=== PATIENT | male | born 1965 | race Caucasian/White ===

== ENCOUNTER 2017-07-30 17:51 | Observation (INO) ==
[2017-07-30] MEDS ORDERED: levoFLOXacin 250 MG TABLET PO ONE (18:10)
[2017-07-30] MEDS ORDERED: Acetaminophen 325 MG TABLET PO ONE (18:10)
[2017-07-30] MEDS ORDERED: 0.9 % Sodium Chloride 1,000 ML IVC ONE (18:10)
[2017-07-30] MEDS ORDERED: Ibuprofen 600 MG TABLET PO ONE (18:10)
[2017-07-30] MEDS ORDERED: methylPREDNISolone 125 MG/2 ML VIAL IVP ONE (18:13)
[2017-07-30] MEDS ORDERED: Ipratropium/Albuterol Neb 3 ML IH ONE ×3 (18:13→18:59)
--- NOTE | 2017-07-30 18:17 | Emergency Department Note ---
Disposition Clinical Impression: Acute bronchitis Qualifiers: Bronchitis organism: unspecified organism Qualified Code(s): J20.9 - Acute bronchitis, unspecified Disposition: Admitted As Inpatient Condition: Good Referrals: NONE,PCP [Primary Care Provider] - Forms: ED Satisfaction Letter Time of Disposition: 19:28 Fever HPI - General Chief Complaint: ED General Medical Stated Complaint: I am sick Time Seen by Provider: 07/30/17 18:04 Source: patient Mode of arrival: private vehicle Limitations: no limitations Nursing Notes Reviewed: Yes Vital Signs Reviewed: Yes - History of Present Illness HPI Narrative: 51-year-old male. presents today with fever and headache, productive cough, nausea vomiting, and not feeling well for 3 days. states coughing up white stuff. no chest pain. hasn't taken anything for it.States occasional dizziness as well. no runny nose. +smoke +etoh -street drugs pmh: none meds: none ALL: excedrin "Makes my heart race" - Related Data Home Medications Medication Instructions Recorded Confirmed No Known Home Drugs 07/30/17 07/30/17 Allergies Allergy/AdvReac Type Severity Reaction Status Date / Time acetaminophen AdvReac Palpitation Verified 07/30/17 17:51 [From Excedrin Migraine] s aspirin AdvReac Palpitation Verified 07/30/17 17:51 [From Excedrin Migraine] s caffeine AdvReac Palpitation Verified 07/30/17 17:51 [From Excedrin Migraine] s All systems ED: reviewed and negative except as stated. Constitutional: Reports: fever, chills, weakness Cardiovascular: Denies: chest pain Respiratory: Reports: cough, wheezes, sputum production (clear). Denies: dyspnea, hemoptysis Gastrointestinal: Reports: abdominal pain, nausea, vomiting. Denies: diarrhea Fever PMH - Past Medical History Medical history: Reports: COPD, other Surgical history: Reports: orthopedic, other (Right knee surgery, left knee arthroscopy, shoulder surgery), other (Exploratory laparotomy) Psychiatric history: Reports: no psych history - Social History Smoking Status: Current every day smoker Alcohol use: Reports: none Drug use: Reports: none Physical Exam - General Limitations: no limitations General appearance: alert, in no apparent distress - Head Head exam: atraumatic, normocephalic - Eye Eye exam: Present: normal appearance, PERRL, EOMI - ENT ENT exam: normal exam, normal oropharynx - Neck Neck exam: Present: normal inspection, full ROM - Chest Chest inspection: Present: normal inspection, symmetric chest wall rise - Respiratory Respiratory exam: Present: wheezes. Absent: respiratory distress - Cardiovascular Cardiovascular exam: Present: regular rate, normal rhythm, tachycardia - Abdominal Exam Abdominal exam: Present: soft, Non-Tender, normal bowel sounds. Absent: tenderness - Extremities Exam Extremities exam: Present: normal inspection, full ROM. Absent: tenderness, pedal edema - Back Exam Back exam: Present: normal inspection, full ROM. Absent: tenderness - Neurological Exam Neurological exam: Present: alert, oriented X3, CN II-XII intact - Psychiatric Psychiatric exam: Present: normal affect, normal mood - Skin Skin exam: Present: warm, dry, intact, normal color Course Course Narrative: [address] Veloz who accepted the patient for acute bronchitis. Vital Signs Temperature 101.3 F H 07/30/17 17:52 Pulse Rate 106 07/30/17 17:52 Respiratory Rate 18 07/30/17 17:52 Blood Pressure 125/77 07/30/17 17:52 O2 Sat by Pulse Oximetry 91 07/30/17 17:52 Temperature 101.3 F H 07/30/17 17:52 Pulse Rate 103 07/30/17 18:41 Respiratory Rate 16 07/30/17 19:07 Blood Pressure 110/56 07/30/17 18:41 O2 Sat by Pulse Oximetry 91 07/30/17 19:07 Oxygen Delivery Oxygen Delivery Room Air Fever - MDM Narrative Medical decision making narrative: patient presents today with fever, cough and not feeling well. Nausea and vomiting (which is chronic for him). patient states he has felt unwell for 3 days. patient received 3 duonebs here, solumedrol, and his lung sounds improving. went from 90% on RA to 93% on RA. patient continues to cough. Given zofran for his nauesa, he threw up after receiving tylenol/motrin and levaquin. unsure if patient kept any down or not. Given rocephin IV. DIscussed he is still tachycardic, and when he talks he desats from 93% to 89% - 90% on RA, so placed on 2LNC. patient agreeable to stay in the hospital for bronchitis treatment. - Medical Records Medical records reviewed: Yes I reviewed the patient's medical records. - Lab Data Lab results reviewed: Yes I reviewed the patient's lab results. Result diagrams: 07/30/17 18:26 07/30/17 18:26 Lab Results 07/30/17 07/30/17 07/30/17 Range/Units 18:26 18:26 18:26 WBC 9.7 (4.3-11.1) K/mcL RBC 3.88 L (4.19-5.50) M/mcL Hgb 11.7 L (12.9-16.9) g/dL Hct 34.4 L (37.5-50.1) % MCV 88.7 (83.0-100.0) fL MCH 30.2 (28.0-33.3) pg MCHC 34.0 (31.6-35.5) g/dL RDW 12.5 (11.5-14.5) % Plt Count 223 (140-400) K/mcL MPV 9.6 (9.4-12.4) fL Immature Gran % 0.3 (0-4) % Seg Neutrophils % 77.0 % Lymphocytes % 14.7 % Monocytes % 7.6 % Eosinophils % 0.1 % Basophils % 0.3 % Neutrophils # 7.5 (1.6-8.9) K/mcL Lymphocytes # 1.4 (0.6-4.6) K/mcL Monocytes # 0.7 (0.0-1.3) K/mcL Eosinophils # 0.0 (0.0-0.6) K/mcL Basophils # 0.0 (0.0-0.2) K/mcL Sodium (136-145) mEq/L Potassium (3.5-5.1) mEq/L Chloride (98-107) mEq/L Carbon Dioxide (23-29) mEq/L BUN (6-20) mg/dL Creatinine (0.70-1.30) mg/dL Est GFR ( Amer) (> 60) Est GFR (Non-Af Amer) (> 60) BUN/Creatinine Ratio (6-26) Glucose (70-105) mg/dL Calculated Osmolality (280-300) Lactic Acid 0.5 (0.5-2.2) mmol/L Calcium (8.6-10.3) mg/dL Total Bilirubin 0.3 (0.3-1.0) mg/dL Direct Bilirubin 0.0 (0.0-0.2) mg/dL Indirect Bilirubin 0.3 (0.0-1.2) mg/dL AST 14 (13-39) Units/L ALT 6 L (7-52) Units/L Alkaline Phosphatase 38 (34-104) Units/L Serum Total Protein 6.9 (6.4-8.9) g/dL Albumin 4.1 (3.5-5.7) g/dL Globulin 2.8 (2.4-3.5) g/dL Albumin/Globulin Ratio 1.5 (1.1-2.2) Urine Color (Yellow) Urine Clarity (Clear) Urine pH (5.0-8.0) pH Units Ur Specific [place] (1.010-1.025) Urine Protein (Neg-Trace) mg/dL Urine Glucose (UA) (Normal) mg/dL Urine Ketones (Negative) mg/dL Urine Blood (Negative) Urine Nitrite (Negative) Urine Bilirubin (Negative) Urine Urobilinogen (Normal) mg/dL Ur Leukocyte Esterase (Negative) Urine Microscopic RBC (0-3) per hpf Urine Microscopic WBC (0-3) per hpf Ur Squamous Epith Cells (None-Few) per lpf Urine Mucus (Few) Ur Culture Indicated? (NO) Urine Opiates Screen (Dhnkpm=044) ng/mL Ur Oxycodone Screen (Cutoff= 100) ng/mL Ur Barbiturates Screen (Jfowkg=401) ng/mL Ur Phencyclidine Scrn (Cutoff=25) ng/mL Ur Amphetamines Screen (Hwngjz=3904) ng/mL U Benzodiazepines Scrn (Dhnspq=499) ng/mL Urine Cocaine Screen (Cutoff= 300) ng/mL U Marijuana (THC) Screen (Cutoff = 50) ng/mL 07/30/17 07/30/17 07/30/17 Range/Units 18:26 18:44 18:44 WBC (4.3-11.1) K/mcL RBC (4.19-5.50) M/mcL Hgb (12.9-16.9) g/dL Hct (37.5-50.1) % MCV (83.0-100.0) fL MCH (28.0-33.3) pg MCHC (31.6-35.5) g/dL RDW (11.5-14.5) % Plt Count (140-400) K/mcL MPV (9.4-12.4) fL Immature Gran % (0-4) % Seg Neutrophils % % Lymphocytes % % Monocytes % % Eosinophils % % Basophils % % Neutrophils # (1.6-8.9) K/mcL Lymphocytes # (0.6-4.6) K/mcL Monocytes # (0.0-1.3) K/mcL Eosinophils # (0.0-0.6) K/mcL Basophils # (0.0-0.2) K/mcL Sodium 133 L (136-145) mEq/L Potassium 3.5 (3.5-5.1) mEq/L Chloride 103 (98-107) mEq/L Carbon Dioxide 22 L (23-29) mEq/L BUN 13 (6-20) mg/dL Creatinine 0.89 (0.70-1.30) mg/dL Est GFR ( Amer) > 60 (> 60) Est GFR (Non-Af Amer) > 60 (> 60) BUN/Creatinine Ratio 15 (6-26) Glucose 104 (70-105) mg/dL Calculated Osmolality 276 L (280-300) Lactic Acid (0.5-2.2) mmol/L Calcium 8.5 L (8.6-10.3) mg/dL Total Bilirubin 0.4 (0.3-1.0) mg/dL Direct Bilirubin (0.0-0.2) mg/dL Indirect Bilirubin (0.0-1.2) mg/dL AST 14 (13-39) Units/L ALT 6 L (7-52) Units/L Alkaline Phosphatase 38 (34-104) Units/L Serum Total Protein 6.9 (6.4-8.9) g/dL Albumin 4.1 (3.5-5.7) g/dL Globulin 2.8 (2.4-3.5) g/dL Albumin/Globulin Ratio 1.5 (1.1-2.2) Urine Color Yellow (Yellow) Urine Clarity Clear (Clear) Urine pH 6.0 (5.0-8.0) pH Units Ur Specific [place] 1.025 (1.010-1.025) Urine Protein 30 H (Neg-Trace) mg/dL Urine Glucose (UA) Normal (Normal) mg/dL Urine Ketones Negative (Negative) mg/dL Urine Blood Small H (Negative) Urine Nitrite Negative (Negative) Urine Bilirubin Negative (Negative) Urine Urobilinogen Normal (Normal) mg/dL Ur Leukocyte Esterase Negative (Negative) Urine Microscopic RBC 5-15 H (0-3) per hpf Urine Microscopic WBC 0-3 (0-3) per hpf Ur Squamous Epith Cells Few (None-Few) per lpf Urine Mucus Few (Few) Ur Culture Indicated? NO (NO) Urine Opiates Screen Positive H (Vobscl=974) ng/mL Ur Oxycodone Screen Positive H (Cutoff= 100) ng/mL Ur Barbiturates Screen Negative (Uhgnmi=758) ng/mL Ur Phencyclidine Scrn Negative (Cutoff=25) ng/mL Ur Amphetamines Screen Negative (Edlgdc=8233) ng/mL U Benzodiazepines Scrn Negative (Ppwmyn=549) ng/mL Urine Cocaine Screen Negative (Cutoff= 300) ng/mL U Marijuana (THC) Screen Negative (Cutoff = 50) ng/mL - Radiology Data Radiology results reviewed: Yes I reviewed the patient's radiology results. cxr 2 view negative per radiology report
[2017-07-30 18:37] LABS: Basophils % 0.3 %; Eosinophils % 0.1 %; Hematocrit 34.4 % (37.5-50.1); Hemoglobin 11.7 g/dL (12.9-16.9); Immature Granulocytes % 0.3 % (0-4); Lymphocytes # 1.4 K/mcL (0.6-4.6); Lymphocytes % 14.7 %; Mean Corpuscular Hemoglobin 30.2 pg (28.0-33.3); Mean Corpuscular Volume 88.7 fL (83.0-100.0); Mean Platelet Volume 9.6 fL (9.4-12.4); Monocytes # 0.7 K/mcL (0.0-1.3); Monocytes % 7.6 %; Neutrophils # 7.5 K/mcL (1.6-8.9); Platelet Count 223 K/mcL (140-400); Red Blood Count 3.88 M/mcL (4.19-5.50); Red Cell Distribution Width 12.5 % (11.5-14.5)
[2017-07-30 18:54] LABS: Albumin 4.1 g/dL (3.5-5.7); Albumin/Globulin Ratio 1.5 (1.1-2.2); Bilirubin,Indirect 0.3 mg/dL (0.0-1.2); Bilirubin,Total 0.3 mg/dL (0.3-1.0); Globulin 2.8 g/dL (2.4-3.5); Total Protein 6.9 g/dL (6.4-8.9)
[2017-07-30 18:55] LABS: Bilirubin,Urine Negative (Negative); Blood,Urine Small (Negative); Clarity,Urine Clear (Clear); Color,Urine Yellow (Yellow); Glucose,Urine (UA) Normal (Normal); Ketones,Urine Negative (Negative); Leukocyte Esterase,Urine Negative (Negative); Nitrite,Urine Negative (Negative); Protein,Urine 30 mg/dL (Neg-Trace); Specific Gravity,Urine 1.025 (1.010-1.025); Urobilinogen,Urine Normal (Normal)
[2017-07-30 18:55] LABS: Alanine Aminotransferase 6 Units/L (7-52); Albumin 4.1 g/dL (3.5-5.7); Albumin/Globulin Ratio 1.5 (1.1-2.2); Alkaline Phosphatase 38 Units/L (34-104); Aspartate Amino Transferase 14 Units/L (13-39); BUN/Creatinine Ratio 15 (6-26); Bilirubin,Total 0.4 mg/dL (0.3-1.0); Blood Urea Nitrogen 13 mg/dL (6-20); Calcium 8.5 mg/dL (8.6-10.3); Carbon Dioxide 22 mEq/L (23-29); Chloride 103 mEq/L (98-107); Globulin 2.8 g/dL (2.4-3.5); Glucose 104 mg/dL (70-105); Osmolality,Calculated 276 (280-300); Potassium 3.5 mEq/L (3.5-5.1); Sodium 133 mEq/L (136-145); Total Protein 6.9 g/dL (6.4-8.9); eGFR For African Americans > 60 (> 60); eGFR For Non-African Americans > 60 (> 60)
[2017-07-30] MEDS ORDERED: Ondansetron 4 MG/2 ML VIAL IVP ONE (18:57)
[2017-07-30 19:04] LABS: Mucus,Urine Few (Few); Squamous Epithelial Cell,Urine Few per lpf (None-Few); WBC,Urine 0-3 per hpf (0-3)
[2017-07-30 19:13] LABS: Amphetamine Screen,Urine Negative ng/mL (Cutoff=1000); Barbiturate Screen,Urine Negative ng/mL (Cutoff=200); Benzodiazepines Screen,Urine Negative ng/mL (Cutoff=200); Cannabinoid Screen,Urine Negative ng/mL (Cutoff = 50); Cocaine Screen,Urine Negative ng/mL (Cutoff= 300); Opiate Screen,Urine Positive ng/mL (Cutoff=300); Phencyclidine Screen,Urine Negative ng/mL (Cutoff=25)
[2017-07-30] MEDS ORDERED: cefTRIAXone 1,000 MG in Water for inj. (sterile) 20 ML 10 ML IVP ONE (19:24)
[2017-07-30] MEDS ORDERED: Naloxone 0.4 MG/ML INJ IVP PRN (23:14)
[2017-07-31] MEDS: 0.9 % Sodium Chloride 1,000 ML IVC SCH ×2 (00:14→08:09)
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
[2017-07-31] MEDS ORDERED: Nicotine 21 MG PATCH.TD24 TD SCH (12:15)
[2017-07-31] MEDS: *HR* HYDROcodone/Acet 5/325 mg TABLET PO PRN ×2 (13:09→20:48)
[2017-07-31] MEDS: Ipratropium/Albuterol Neb 3 ML IH PRN ×2 (16:42→21:26)
[2017-07-31] MEDS ORDERED: Levofloxacin 750 MG/150 ML 750 MG/150 ML BAG IVPB SCH (17:00)
[2017-07-31] MEDS ORDERED: CEFTRIAXONE IN IS-OSM DEXTROSE 1 GM/50 ML PIGGYBACK IV SCH (17:30)
[2017-07-31] MEDS ORDERED: Azithromycin 500 MG in D5% in Water 250 ML IVPB SCH (18:00)
[2017-07-31] MEDS: cefTRIAXone 1,000 MG in Water for inj. (sterile) 20 ML 10 ML IVP SCH (18:01)
[2017-07-31] MEDS: Lactobacillus 1 EACH CAP.SPRINK PO SCH (20:12)
[2017-08-01] MEDS: *HR* HYDROcodone/Acet 5/325 mg TABLET PO PRN (04:40)
[2017-08-01 05:17] LABS: Basophils % 0.1 %; Eosinophils % 0.1 %; Hematocrit 36.5 % (37.5-50.1); Hemoglobin 12.2 g/dL (12.9-16.9); Immature Granulocytes % 0.3 % (0-4); Lymphocytes # 3.3 K/mcL (0.6-4.6); Lymphocytes % 33.8 %; Mean Corpuscular HGB Conc 33.4 g/dL (31.6-35.5); Mean Corpuscular Hemoglobin 30.5 pg (28.0-33.3); Mean Corpuscular Volume 91.3 fL (83.0-100.0); Mean Platelet Volume 10.4 fL (9.4-12.4); Monocytes # 0.5 K/mcL (0.0-1.3); Monocytes % 5.1 %; Neutrophils # 5.9 K/mcL (1.6-8.9); Platelet Count 228 K/mcL (140-400); Red Cell Distribution Width 13.1 % (11.5-14.5); Segmented Neutrophils % 60.6 %
[2017-08-01 06:12] LABS: Thyroid Stimulating Hormone 1.244 mcIU/mL (0.340-5.600)
[2017-08-01] MEDS: Lactobacillus 1 EACH CAP.SPRINK PO SCH (09:07)
[2017-08-01] MEDS: cefTRIAXone 1,000 MG in Water for inj. (sterile) 20 ML 10 ML IVP SCH (09:09)
[2017-08-01 09:48] LABS: Folate 14.7 ng/mL (3.0-16.0)
--- NOTE | 2017-08-01 10:05 | Discharge Summary ---
Date of Encounter: 08/01/17 Time of Encounter: 09:55 - Discharge Diagnosis (1) Pneumonia Priority: Primary Status: Acute Qualifiers: Pneumonia type: due to unspecified organism Laterality: bilateral Lung location: lower lobe of lung Qualified Code(s): J18.1 - Lobar pneumonia, unspecified organism (2) Anemia Priority: Secondary Status: Acute Qualifiers: Anemia type: unspecified type Qualified Code(s): D64.9 - Anemia, unspecified (3) Hematuria Priority: Secondary Status: Acute Qualifiers: Hematuria type: asymptomatic microscopic Qualified Code(s): R31.21 - Asymptomatic microscopic hematuria (4) Dysphagia Priority: Secondary Status: Chronic Qualifiers: Dysphagia type: unspecified Qualified Code(s): R13.10 - Dysphagia, unspecified (5) Weight loss Priority: Secondary Status: Acute (6) Elevated lactic acid level Priority: Secondary Status: Resolved Hospital course: Mr. Gould is a 51 year old male who came to emergency room stating he had 3 day history of increasing weakness with cough productive of white sputum. He reports vomiting 4 times on the day of admission without visible hematemesis. He complains of abdominal pain and neck pain. He was found to be febrile in emergency room with temperature 101.3. He was admitted to [facility] for ongoing care needs. Initial orders were written by the emergency room physician. I saw him on July 31 and performed a history and physical. He was started on IV Levaquin and Solu -Medrol in emergency room. He developed allergic symptoms with pruritus after the second infusion of IV Levaquin was started. Levaquin was discontinued and he was given Rocephin and Zithromax. Chest, abdomen, and pelvic CT was done to further evaluate. There were multifocal opacities in the bilateral lower lobes. These were felt to reflect multifocal pneumonia with possible superimposed bronchiolitis. Follow-up chest CT in 6-8 weeks was recommended. His PCP can order this to monitor resolution. No other worrisome pathology was seen. Anemia testing showed iron 56, transferrin saturation 20, transferrin 205, ferritin 202, B12 693, and folate 14.7. Hemoglobin noah to 12.2 by day of discharge. On August 01 he felt significantly improved and wished to be discharged home. He will follow with a PCP at [facility]. Room air oximetry will be checked on a 6 minute walk prior to discharge. I encouraged him to become a nonsmoker. I recommended he discuss with his PCP referral for EGD for dysphagia. - Time Spent with Patient Total time spent providing and/or coordinating discharge services: - Discharge Medications Prescriptions: Cefuroxime PO [Ceftin] 500 mg PO Q12HR #10 tablet Azithromycin [Zithromax] 250 mg PO DAILY #5 tablet Lactobacillus [Culturelle] 1 each PO BID #10 cap.sprink Home Medications: Azithromycin [Zithromax] 250 mg PO DAILY #5 tablet 08/01/17 [Rx] Cefuroxime PO [Ceftin] 500 mg PO Q12HR #10 tablet 08/01/17 [Rx] Lactobacillus [Culturelle] 1 each PO BID #10 cap.sprink 08/01/17 [Rx] Allergies/Adverse Reactions: 3 Allergy/AdvReac Type Severity Reaction Status Date / Time levofloxacin [From Levaquin] Allergy Flushing Verified 07/31/17 17:44 acetaminophen AdvReac Palpitation Verified 07/30/17 17:51 [From Excedrin Migraine] s aspirin AdvReac Palpitation Verified 07/30/17 17:51 [From Excedrin Migraine] s caffeine AdvReac Palpitation Verified 07/30/17 17:51 [From Excedrin Migraine] s Date of admission: 07/30/17 19:51 Primary care physician: PCP NONE Consults: 07/30/17 20:56 Consult to Nutrition [CONS] Routine Comment: Consulting Provider: NUTRITION Reason for Dietary Consult: Other Other:: NAUSEA & VOMITING - Constitutional Vitals: Temp Pulse Resp BP Pulse Ox 98.0 F 67 14 105/67 97 08/01/17 07:06 08/01/17 07:06 08/01/17 07:06 08/01/17 07:06 08/01/17 04:22 - Patient Status Disposition: Home, Self-Care Condition: Good Functional capacity at discharge: independent ambulation Overall status at discharge: patient is progressing back to baseline - Discharge Instructions Follow Up With: Jaclyn Cox [employer] [Advanced Practice Nurse] - 1 week - Diet and Activity Activity: resume usual activities as tolerated Diet: advance to your usual diet
[2017-08-01 10:14] VITALS: BP 118/80
== END 2017-08-01 11:41 | disposition home or self-care (01) ==
LOC: EMEROOPIK 17:51 → INPPIK 17:51
PROVIDERS: ADMIT Internal Medicine; ATTEND Internal Medicine